=== PATIENT | female | born 1955 | race Caucasian/White ===

== ENCOUNTER 2020-03-09 14:11 | Emergency (ER) | payer BC ==
[~2020-03-09] VITALS: Ht 157.5 cm; Wt 121.9 kg
[2020-03-09] MEDS ORDERED: potassium (14:23)
[2020-03-09] MEDS ORDERED: HCTZ (14:23)
[2020-03-09] MEDS ORDERED: LEVOTHYROXINE (14:23)
[2020-03-09 14:59] LABS: BASO % 0.4 % (0.0-1.0); EOS % 0.5 % (0.0-3.0); HEMATOCRIT 42.4 % (36.0-47.0); HEMOGLOBIN 14.6 g/dl (12.0-15.5); LYMPH # 1.5 10^3/uL (1.5-5.0); LYMPH % 20.5 % (24.0-44.0); MEAN CORPUSCULAR HEMOGLOBIN 32.4 pg (27.0-33.0); MEAN CORPUSCULAR HGB CONC 34.4 g/dl (32.0-36.5); MEAN CORPUSCULAR VOLUME 94.2 fl (80.0-96.0); MONO # 0.6 10^3/uL (0.0-0.8); MONO % 7.7 % (0.0-5.0); NEUTROPHILS # 5.3 10^3/uL (1.5-8.5); NEUTROPHILS % 70.6 % (36.0-66.0); PLATELET COUNT, AUTOMATED 235 10^3/uL (150-450); WHITE BLOOD COUNT 7.5 10^3/uL (4.0-10.0)
[2020-03-09 15:30] LABS: BILIRUBIN,DIRECT 0.2 MG/DL (0.0-0.2); BILIRUBIN,TOTAL 0.6 MG/DL (0.2-1.0); TOTAL PROTEIN 7.9 GM/DL (6.4-8.2)
--- NOTE | 2020-03-09 16:40 | REPVR ---
PROCEDURE INFORMATION: Exam: CT Abdomen And Pelvis Without Contrast Exam date and time: 03/09/2020 3:45 PM Age: 64 years old Clinical indication: Abdominal pain; Localized; Left upper quadrant (luq); Additional info: Luq pain HX divertic TECHNIQUE: Imaging protocol: Computed tomography of the abdomen and pelvis without contrast. Radiation optimization: All CT scans at this facility use at least one of these dose optimization techniques: automated exposure control; mA and/or kV adjustment per patient size (includes targeted exams where dose is matched to clinical indication); or iterative reconstruction. COMPARISON: No relevant prior studies available. FINDINGS: Lungs: Clear appearing lung bases. Liver: Normal appearing liver. Gallbladder and bile ducts: Surgical clips are noted at the gallbladder fossa and the patient is status post cholecystectomy. Pancreas: The pancreas is normal in size. Spleen: Normal. No splenomegaly. Adrenals: Normal adrenal glands. Kidneys and ureters: There is a 1.7 cm low-density lesion of the upper pole of the right kidney. This could represent a cyst. However, I would recommend correlation with a CT scan with contrast to determine whether this is cystic or solid. If this was a solid lesion it would be of concern for malignancy. There is no evidence of stone in the path of the right or left ureter. Stomach and bowel: Unremarkable. No obstruction. No mucosal thickening. Appendix: No evidence of appendicitis. Intraperitoneal space: There is no evidence of pneumoperitoneum. Vasculature: Unremarkable. No abdominal aortic aneurysm. Lymph nodes: Unremarkable. No enlarged lymph nodes. Bladder: Normal appearing urinary bladder. Reproductive: Normal size uterus and ovaries. Bones/joints: There is grade 2 spondylolisthesis of L4 on L5 which produces severe central spinal canal stenosis and severe bilateral L4 neural foraminal narrowing. The L3-L4 level demonstrates a large posterior disc protrusion causing severe central spinal canal stenosis. The L1-L2 level demonstrates a very large posterior disc protrusion causing severe central spinal canal stenosis. The T12-L1 level demonstrates a large posterior osteophyte causing severe central spinal canal stenosis. T9 through T12 demonstrates posterior disc osteophyte complex causing severe central canal stenosis as well. There is severe sclerosis and facet hypertrophy lower lumbar region. Soft tissues: Unremarkable. IMPRESSION: 1. Severe central spinal canal stenosis at multiple levels as described above. 2. 1.7 cm low-density lesion right kidney. It would be important to have a CT scan with contrast to determine if this is cystic or solid. If this is solid than malignant lesion would be a concern. 3. Numerous diverticula left colon and sigmoid colon with no evidence of diverticulitis. Electronically signed by: Roberto Carlos León On 03/09/2020 16:39:48 PM
[2020-03-09] MEDS ORDERED: ISOVUE-370 76% 100ML VIAL As Ordered ONE (17:09)
--- NOTE | 2020-03-09 18:12 | REPVR ---
PROCEDURE INFORMATION: Exam: CT Abdomen And Pelvis With Contrast; Kidneys Exam date and time: 03/09/2020 5:24 PM Age: 64 years old Clinical indication: Abnormal findings; Abnormal radiologic finding of the abdomen; Radiologic exam and body structure: CT w/o contrast; Additional info: R renal lesion TECHNIQUE: Imaging protocol: Computed tomography of the abdomen and pelvis with intravenous contrast. Exam focused on the kidneys. Radiation optimization: All CT scans at this facility use at least one of these dose optimization techniques: automated exposure control; mA and/or kV adjustment per patient size (includes targeted exams where dose is matched to clinical indication); or iterative reconstruction. Contrast material: ISOVUE 370; Contrast volume: 100 ml; Contrast route: INTRAVENOUS (IV); COMPARISON: CT ABD PELVIS W/O CONTRAST 03/09/2020 3:34 PM FINDINGS: Lungs: Clear appearing lung bases. Liver: Normal appearing liver. Gallbladder and bile ducts: Post cholecystectomy. Pancreas: Normal in size. Spleen: Normal spleen. Adrenals: Normal adrenal glands. Kidneys and ureters: 1.6 cm round low-density lesion upper pole of the right kidney consistent with a cyst after the injection of contrast. There is enhancement of both kidneys. Stomach and bowel: There are multiple diverticula of the left colon and sigmoid colon but no evidence of diverticulitis. Intraperitoneal space: There is no evidence of free fluid in the abdomen or the pelvis. Lymph nodes: Unremarkable. No enlarged lymph nodes. Vasculature: There is opacification of the aorta which appears intact. Bladder: Normal urinary bladder. Reproductive: Normal uterus. Normal-sized ovaries. Bones/joints: Severe DJD and severe central canal stenosis L4-L5 with severe bilateral neural foraminal narrowing. Soft tissues: Unremarkable. IMPRESSION: 1.6 cm cyst upper pole of the right kidney. Electronically signed by: Roberto Carlos León On 03/09/2020 18:12:09 PM
[2020-03-09 18:34] VITALS: BP 133/78
== END 2020-03-09 18:37 | disposition home or self-care (01) ==
LOC: M ED 14:11
DX: N28.1 Cyst of kidney, acquired (principal); N64.4 Mastodynia; Z91.013 Allergy to seafood
CPT/HCPCS: 36415; 74176; 74177; 80047; 80076; 81001; 83690; 85025; 99284; Q9967

== ENCOUNTER → 2020-05-07 | Outpatient (CLI) | payer BC ==
[~2020-05-07] MED LIST: HCTZ; LEVOTHYROXINE; potassium
--- NOTE | 2020-05-07 16:37 | REP ---
INDICATION: SCIATICA, SPRAIN COMPARISON: None. TECHNIQUE: AP, lateral, bilateral oblique, and coned-down views of the lumbar spine. FINDINGS: Moderate to advanced multilevel degenerative changes are appreciated including grade 1 anterolisthesis at the L4-5 level of approximately 7.0 mm, endplate sclerosis, disc space narrowing, and osteophytosis including most pronounced asymmetric right-sided focal advanced changes at the L3-4 level. There is no evidence for acute fracture/compression injury. IMPRESSION: Advanced multilevel degenerative changes as described above primarily noted along the right side of the L3-4 level as well as grade 1 anterolisthesis at the L4-5 level. <Electronically signed by Alec Henson > 05/07/20 [id number]
--- NOTE | 2020-05-07 16:39 | REP ---
INDICATION: SCIATICA, SPRAIN. COMPARISON: None FINDINGS: There is no evidence of an acute fracture or destructive osseous lesion. Mild degenerative changes seen involving the inferior sacroiliac joints. Degenerative changes are seen involving the imaged portion of the lumbar spine.. IMPRESSION: Chronic changes <Electronically signed by Ferdinand Montesinos > 05/07/20 [id number]
--- NOTE | 2020-05-07 16:40 | REP ---
INDICATION: SCIATICA, SPRAIN. COMPARISON: None TECHNIQUE: AP and frog-lateral views FINDINGS: The hip joint space is symmetric and relatively well maintained. There is no acute fracture or destructive osseous lesion IMPRESSION: . Negative exam <Electronically signed by Ferdinand Montesinos > 05/07/20 [id number]
== END ==
LOC: M WUC 15:57
PROVIDERS: ATTEND Physician Assistant
DX: S73.111A Iliofemoral ligament sprain of right hip, initial encounter (principal); X58.XXXA Exposure to other specified factors, initial encounter; Y92.9 Unspecified place or not applicable; M54.31 Sciatica, right side; M51.36 Other intervertebral disc degeneration, lumbar region

== ENCOUNTER 2020-06-09 15:08 | Emergency (ER) | payer BC ==
[~2020-06-09] VITALS: Ht 157.5 cm; Wt 124.7 kg
[~2020-06-09 15:08] MED LIST changes: -ACET-683 PO; -CYCL-707; -GABA-843 PO; -HYDR25TAB; -IBUP80TA; -LEVO88TA3; -POTA10CA32
[2020-06-09] MEDS ORDERED: IBUP80TA (15:24)
[2020-06-09] MEDS ORDERED: LEVO88TA3 (15:24)
[2020-06-09] MEDS ORDERED: HYDR25TAB (15:24)
[2020-06-09] MEDS ORDERED: ACET-683 PO (15:24)
[2020-06-09] MEDS ORDERED: CYCL-707 (15:24)
[2020-06-09] MEDS ORDERED: POTA10CA32 (15:24)
[2020-06-09] MEDS ORDERED: KETOROLAC 60MG 2ML VIAL IM ONE (16:00)
--- NOTE | 2020-06-09 16:18 | REP ---
INDICATION: left leg pain; ?radicular COMPARISON: 05/07/2020 TECHNIQUE: AP, lateral, bilateral oblique, and coned-down views of the lumbar spine. FINDINGS: Moderate to advanced multilevel degenerative changes are again noted and stable including grade 1 anterolisthesis at the L4-5 level of approximately 7 mm as well as endplate sclerosis, osteophytosis, disc space narrowing and facet arthropathy at various levels from the lower thoracic to L5-S1 level. No acute fracture/compression injury or acute subluxation. IMPRESSION: Moderate to advanced multilevel degenerative changes relatively stable compared to 05/07/2020. No acute fracture/compression injury. <Electronically signed by Alec Henson > 06/09/20 [id number]
--- NOTE | 2020-06-09 17:39 | REPVR ---
PROCEDURE INFORMATION: Exam: US Duplex Left Lower Extremity Veins, Limited Exam date and time: 06/09/2020 5:22 PM Age: 64 years old Clinical indication: Pain; Leg, lower; Left; Additional info: Left leg pain; R/O dvt TECHNIQUE: Imaging protocol: Real-time Duplex ultrasound of the Left Lower Extremity with 2-D santamaria scale, color Doppler flow and spectral waveform analysis with image documentation. Limited exam focused on the left lower extremity veins. COMPARISON: No relevant prior studies available. FINDINGS: Left deep veins: Unremarkable. The common femoral, femoral, proximal profunda femoral and popliteal veins are patent without thrombus. Normal Doppler waveforms. Normal compressibility and/or augmentation response. Left superficial veins: Unremarkable. Saphenofemoral junction is patent without thrombus. Soft tissues: Unremarkable. IMPRESSION: No evidence of deep vein thrombosis. Electronically signed by: Jam Milner On 06/09/2020 17:39:31 PM
[2020-06-09] MEDS ORDERED: GABA-843 PO ×2 (17:59→18:08)
[2020-06-09 18:19] VITALS: BP 158/82
== END 2020-06-09 18:25 | disposition home or self-care (01) ==
LOC: M ED 15:08
DX: M54.16 Radiculopathy, lumbar region (principal); I10 Essential (primary) hypertension; E03.9 Hypothyroidism, unspecified; K57.32 Diverticulitis of large intestine without perforation or abscess without bleeding; Z79.899 Other long term (current) drug therapy; Z88.5 Allergy status to narcotic agent; Z91.013 Allergy to seafood
CPT/HCPCS: 72110; 93971; 96372; 99283; J1885

== ENCOUNTER → 2020-06-09 | Outpatient (CLI) | payer BC ==
[~2020-06-09] MED LIST changes: +ACET-683 PO; +CYCL-707; +GABA-843 PO; +HYDR25TAB; +IBUP80TA; +LEVO88TA3; +POTA10CA32
--- NOTE | 2020-06-09 10:05 | REP ---
INDICATION: CHEST PAIN COMPARISON: None. TECHNIQUE: Frontal view of the chest with multiple views of the right hemithorax. FINDINGS: Frontal view of the chest demonstrates no acute cardiopulmonary process, contusion, effusion, or pneumothorax. Multiple views of the right hemithorax demonstrates no acute rib fracture/injury or pathology. IMPRESSION: No acute fracture or rib pathology noted. <Electronically signed by Alec Henson > 06/09/20 [id number]
== END ==
LOC: M WUC 08:53
PROVIDERS: ATTEND Physician Assistant
DX: R07.9 Chest pain, unspecified (principal)

== ENCOUNTER → 2020-07-15 | Outpatient (CLI) | payer BC ==
[~2020-07-15] MED LIST changes: +ACET-683 PO; +CYCL-707; +GABA-282 PO; +HYDR25TAB; +IBUP80TA; +LEVO88TA3; +POTA10CA32
--- NOTE | 2020-07-15 18:54 | REPVR ---
PROCEDURE INFORMATION: Exam: MR Lumbar Spine Without Contrast. Exam date and time: 07/15/2020 5:45 PM Age: 64 years old Clinical indication: Low back pain; Additional info: Radiculopathy lumbar region TECHNIQUE: Imaging protocol: Multiplanar magnetic resonance images of the lumbar spine without intravenous contrast. COMPARISON: CR Spine. Lumbosacral, complete 06/09/2020 3:52 PM FINDINGS: Vertebrae: Grade 1 anterior spondylolisthesis of L4 on L5. On the STIR sequence there is hyperintensity within the right lateral aspect of the L5 vertebral body series 401, image 1 frames 8-11. It is poorly visualized on the axial T2 weighted series series 601, image 1 frames 4 -6. But is seen on the T1 weighted sagittal series 201, image 1 frame 9 as a hypointense lesion. The lesion appears to measure 1.8 x 2.2 cm. On the T2 sagittal image it is also hypointense and therefore likely sclerotic. Series 301, image 1 frame 9. There may also be a lesion within the sacrum to the left of midline which is not well assessed on this lumbar spine MRI. There is diffuse degenerative facet arthropathy. Spinal cord: The conus medullaris and lower thoracic spinal cord are unremarkable. L1-L2: Diffusely bulging annulus and possible subligamentous disc herniation posteriorly displacing and mildly compressing the proximal cauda equina just below the conus. There is moderate to severe spinal canal stenosis with the AP dimension of the canal measuring 7.5 mm. There is [id number] bilateral neural foraminal narrowing. L2-L3: Diffusely bulging annulus with possible left paracentral disc herniation narrowing the left lateral recess and likely affecting the exiting left L3 nerve root. There is moderate bilateral neural foraminal narrowing. L3-L4: Diffusely bulging annulus with resultant moderate to severe spinal canal stenosis and compression of both exiting L4 nerve roots. There is moderate bilateral neural foraminal narrowing with possible compression of the right L3 nerve root. L4-L5: Grade 1 anterior spondylolisthesis due to subluxation of the degenerated facet joints. There is severe spinal canal stenosis with compression of the thecal sac and both exiting L5 nerve roots. The neural foramina are patent. L5-S1: No spinal canal stenosis however there appears to be severe narrowing of both neural foramen likely affecting the L5 nerve roots. Soft tissues: Unremarkable IMPRESSION: 1. Spinal canal stenosis and neural foraminal narrowing at several levels as described preps most severe at the L4-L5 level. There could be multilevel radiculopathies. There also appears to be compression of the proximal cauda equine at the L1-L2 level. 2. There is a sclerotic bone lesion to the right of midline within the L5 vertebra this may be benign but could also be due to metastatic disease-suggest clinical correlation. There may also be a lesion to the left of midline within the sacrum which is not well assessed on this lumbar spine MRI. Electronically signed by: Minnie Gómez On 07/15/2020 18:54:19 PM
== END ==
LOC: M RAD 17:31
PROVIDERS: ATTEND Orthopaedic Surgery
DX: M54.16 Radiculopathy, lumbar region (principal); M43.16 Spondylolisthesis, lumbar region; M48.061 Spinal stenosis, lumbar region without neurogenic claudication; M51.26 Other intervertebral disc displacement, lumbar region; M25.78 Osteophyte, vertebrae